=== PATIENT | female | born 1970 | race Caucasian/White ===

== ENCOUNTER → 2016-08-28 | Outpatient (CLI) | payer BC ==
[~2016-08-28] MED LIST: CALCTAB5 PO; FLAX10007 PO; LEVOIUD; MULT-506 PO
--- NOTE | 2016-08-28 16:46 | MAMMOGRAPHY REPORT ---
BILATERAL DIGITAL SCREENING MAMMOGRAM TOMOSYNTHESIS WITH CAD: 08/28/2016 CLINICAL HISTORY: Routine screening. Patient has no complaints. TECHNIQUE: Breast tomosynthesis in addition to standard 2D mammography was performed. Current study was also evaluated with a Computer Aided Detection (CAD) system. COMPARISON: Outside prior mammograms dated 04/13/2015, 04/12/2014, 04/11/2013 from [facility] BREAST COMPOSITION: The tissue of both breasts is extremely dense, which lowers the sensitivity of mammography. FINDINGS: There is an oval 15 mm mass seen within the left superior posterior breast on the MLO vie w only, thought to project laterally based on the tomosynthesis localizer bar. Recommend spot compr ession tomosynthesis views, X CCL view, and possible breast ultrasound for further evaluation. At t he time of the diagnostic workup, recommend repeat right cc view to include more posterior tissue. The remainder of both breasts are stable compared to prior exams, without suspicious masses, calcifi cations, or areas of architectural distortion noted. IMPRESSION: ACR BI-RADS CATEGORY 0: INCOMPLETE EVALUATION: NEED ADDITIONAL IMAGING EVALUATION Left superior breast mass, for which additional imaging evaluation is recommended. Also recommend r epeat right cc view. The patient will be called to schedule an appointment. Approximately 10% of breast cancers are not detected with mammography. A negative mammographic repor t should not delay biopsy if a clinically suggestive mass is present. Marisabel Jeffries M.D. /:08/28/2016 16:40:01 Supervisor Inspection Department: [place] HOWELL(Eduardo)(Jacklyn)(ANITA), [facility] letter sent: Addl Imaging 0 BI-RADS Code: ACR BI-RADS Category 0: Incomplete Evaluation: Need Additional Imaging Evaluation
== END | disposition home or self-care (01) ==
LOC: C.MAMM 14:57
PROVIDERS: ATTEND Family Medicine
DX: Z12.31 Encounter for screening mammogram for malignant neoplasm of breast (principal); N63 Unspecified lump in breast

== ENCOUNTER → 2016-09-17 | Outpatient (CLI) | payer BC ==
--- NOTE | 2016-09-17 14:27 | MAMMOGRAPHY REPORT ---
BILATERAL DIGITAL DIAGNOSTIC MAMMOGRAM TOMOSYNTHESIS WITH CAD AND TARGETED LEFT ULTRASOUND: 7 CLINICAL HISTORY: Callback from screening mammogram for possible left breast mass. Also called back for repeat right cc view to get more posterior tissue. TECHNIQUE: Breast tomosynthesis in addition to standard 2D mammography was performed. Current study was also evaluated with a Computer Aided Detection (CAD) system. Spot compression left MLO 2-D and tomosynthesis images, repeat right CC 2-D and tomosynthesis images, and left X CCL view were obtain ed. COMPARISON: Comparison is made to exam dated: 08/28/2016 mammogram - [facility]. Outside prior mammograms dated 04/23/2015, 04/12/2014, 04/11/2013 BREAST COMPOSITION: The tissue of both breasts is heterogeneously dense, which may obscure small ma sses. FINDINGS: The previously described possible oval mass seen within the left superior posterior breas t on the MLO view, thought to project laterally based on the localizer bar, is less prominent on the spot compression view and has the appearance more of normal fibroglandular tissue on the spot compr ession tomosynthesis images, without a clear mass seen. Additionally, the appearance of this region is similar to prior exams including the 05/06/2013 exam. The repeat RCC view to include more posteri or tissue shows no suspicious masses, calcifications, or areas of architectural distortion. Targeted ultrasound was performed of the left upper outer quadrant in the region of the possible jonh mographic mass. Numerous round/oval anechoic masses were seen within the left upper outer quadrant, consistent with benign cysts. In the left breast at 3:00, 3 cm from the nipple, there is an oval a nechoic circumscribed mass which measures 9 x 5 x 8 mm and is consistent with a benign simple cyst. This could potentially correlate with the mammographic finding, or the finding could represent norm al fibroglandular tissue. IMPRESSION: ACR BI-RADS CATEGORY 2: BENIGN, TARGETED ULTRASOUND ACR BI-RADS CATEGORY 2: BENIGN The ovoid asymmetry seen within the left superior posterior breast is less prominent on the spot com pression views. Multiple benign cysts were seen within the left upper outer quadrant, the largest m easuring 9 mm in the left breast at 3:00. The mammographic asymmetry is benign and likely represent s normal fibroglandular tissue; alternatively the benign left 3:00 cyst could be contributing to the asymmetry. There is no mammographic or targeted sonographic evidence of malignancy. A 1 year screening mammogra m is recommended. The patient has been verbally notified of the results. Approximately 10% of breast cancers are not detected with mammography. A negative mammographic repor t should not delay biopsy if a clinically suggestive mass is present. Marisabel Jeffries M.D. ah/:09/17/2016 09:16:10 Power Hammer Operator: Anh Baig RT(R)(M), [facility] letter sent: Normal 1/2 BI-RADS Code: ACR BI-RADS Category 2: Benign Ultrasound BI-RADS: ACR BI-RADS Category 2: Benign
== END | disposition home or self-care (01) ==
LOC: C.MAMM 08:38
PROVIDERS: ATTEND Family Medicine
DX: N63 Unspecified lump in breast (principal); N60.12 Diffuse cystic mastopathy of left breast